=== PATIENT | male | born 1975 | race Two or more races ===

== ENCOUNTER 2016-08-28 20:28 | Emergency (ER) | payer SELFPAY ==
--- NOTE | ~2016-08-28 | CR107 ---
[facility] A Service of [facility] RADIOLOGY TEXT RESULTS PATIENT: KALE PAEZ LOCATION: [facility] : 73 UNIT #: [id number] AGE: [address]: Jayjay Navarro MD SEX: M ORDER DR: [id number] [facility] [address] [place], [place] [address] [id number] E MR#: [id number] Acc #: [id number] NAME: KALE PAEZ : 1975 SEX: M STUDY DATE/TIME: 08/28/2016 22:06 UNIT: [facility] ROOM: STUDY DESCRIPTION: CR Femur 2 Views Rt Attending Physician: Jayjay Navarro Ordering Physician: Luh Constantino M.D. Primary Care Physician: [facility] MEDICAL IMAGING REPORT This report is preliminary unless electronic signature is present EXAM Right femur INDICATIONS Foreign body. Nail into the distal right femur. TECHNIQUE 2 views of the right femur without comparison. FINDINGS There is a nail within the anterior and lateral aspect of the distal thigh. The nail measures approximately 3.3 cm in length. This is isolated to the superficial soft tissues. No bone involvement. IMPRESSION 3.3 cm nail in the anterior thigh musculature of the distal thigh. No osseous involvement. Dictated by... Kai Kemp M.D. THIS IS AN ELECTRONICALLY VERIFIED REPORT Kai Kemp M.D. at 09/02/2016 7:03 AM RPJess/hallie TD: 08/28/2016 22:56 JOB #: [id number] MEDICAL IMAGING REPORT Page 1 of 1 COPY
== END 2016-08-29 01:00 | disposition home or self-care (01) ==
LOC: CED 20:28
DX: S71.141A Puncture wound with foreign body, right thigh, initial encounter (principal); W22.8XXA Striking against or struck by other objects, initial encounter; Y92.69 Other specified industrial and construction area as the place of occurrence of the external cause; Y93.89 Activity, other specified; Y99.0 Civilian activity done for income or pay
CPT/HCPCS: 73552; 90471; 90715; 99283